=== PATIENT | female | born 1960 | race African-American/Black ===

== ENCOUNTER 2021-03-02 00:16 | Emergency (ER) | payer OTHER ==
[~2021-03-02] VITALS: Ht 162.6 cm; Wt 79.4 kg
[2021-03-02 00:24] VITALS: BP_SYST 123
[2021-03-02] MEDS ORDERED: DIPH-TET-PERTUS Vaccine 0.5 ML VIAL (ADACEL) I.M. ONE (01:00)
[2021-03-02 01:23] LABS: HEMATOCRIT 35.5 % (36-48); HEMOGLOBIN 11.5 g/dL (12.0-16.0); LYMPHOCYTES % (AUTO) 22.1 % (20.5-51.5); MEAN CORPUSCULAR HEMOGLOBIN 28 pg (27-31); MEAN CORPUSCULAR HGB CONC 32 % (32-36); MEAN CORPUSCULAR VOLUME 86 fL (79.0-98.0); MONOCYTES % (AUTO) 8.2 % (1.7-9.3); PLATELET COUNT (AUTO) 473 K/uL (130-430); RED BLOOD CELL COUNT(AUTO) 4.11 MIL/uL (4.2-6.2); RED CELL DISTRIBUTION WIDTH 14.1 % (9.0-15.0); WHITE BLOOD COUNT (AUTO) 8.4 K/uL (4.8-10.8)
[2021-03-02 01:24] LABS: BASOPHILS # (AUTO) 0.1 K/uL (0.0-0.2); BASOPHILS % (AUTO) 0.8 % (0.0-2.0); EOSINOPHILS # (AUTO) 0.2 K/uL (0.0-0.4); EOSINOPHILS % (AUTO) 1.9 % (0.0-4.0); LYMPHOCYTES # (AUTO) 1.9 K/uL (1.0-5.5); MONOCYTES # (AUTO) 0.7 K/uL (0.0-1.0); NEUTROPHILS # (AUTO) 5.6 K/uL (1.8-7.7)
[2021-03-02 01:36] LABS: CALCIUM 9.1 mg/dL (8.4-11.0); CREATININE 1.05 mg/dL (0.55-1.30)
[2021-03-02 01:41] LABS: ALBUMIN 3.8 g/dL (3.4-4.8); TOTAL BILIRUBIN 0.4 mg/dL (0.0-1.0)
[2021-03-02] MEDS ORDERED: fentaNYL CITRATE/PF 100 MCG/2 ML AMP IVP ONE (02:00)
[2021-03-02] MEDS ORDERED: ONDANSETRON HCL 4 MG/2 ML VIAL IVP ONE (02:00)
[2021-03-02] MEDS ORDERED: fentaNYL CITRATE/PF 100 MCG/2 ML AMP ONE (02:10)
[2021-03-02] MEDS ORDERED: LIDOCAINE 1%, 20 ML MDV 20 ML ONE (02:20)
[2021-03-02] MEDS ORDERED: AMOX-426 PO (03:06)
[2021-03-02] MEDS ORDERED: ACET1TAB23 PO (03:06)
[2021-03-02] MEDS ORDERED: BACI15OI13 TP (03:06)
[2021-03-02] MEDS ORDERED: BACITRACIN 1 GM OINT TP ONE ×2 (03:07→03:15)
[2021-03-02] MEDS ORDERED: AMOXICILLIN/CLAVULANATE POTASSIUM 875 MG TABLET PO ONE (03:15)
[2021-03-02] MEDS ORDERED: LIDOCAINE 1% 10 MG/ML, 20 ML MDV INJ ONE (03:15)
[2021-03-02] MEDS: MORPHINE 4 MG INJ. 4 MG/ML VIAL IVP ONE ×2 (03:41→03:54)
[2021-03-02] MEDS ORDERED: MORPHINE 4 MG INJ. 4 MG/ML VIAL ONE (03:42)
[2021-03-02 03:54] VITALS: BP_SYST 115
== END 2021-03-02 03:54 | disposition home or self-care (01) ==
LOC: SED 00:16
DX: S02.85XA Fracture of orbit, unspecified, initial encounter for closed fracture (principal); S01.81XA Laceration without foreign body of other part of head, initial encounter; S40.012A Contusion of left shoulder, initial encounter; I10 Essential (primary) hypertension; F17.200 Nicotine dependence, unspecified, uncomplicated; W10.8XXA Fall (on) (from) other stairs and steps, initial encounter; Y93.89 Activity, other specified; Y92.89 Other specified places as the place of occurrence of the external cause; Y99.8 Other external cause status
CPT/HCPCS: 36415; 70450; 71045; 72125; 73030; 76376; 80053; 85025; 90471; 90715; 96374; 96375; 99285; J2001; J2270; J2405; J3010